=== PATIENT | male | born 1950 | race Caucasian/White ===

== ENCOUNTER → 2020-02-04 11:16 | Outpatient (BNVA) | payer MEDICARE, OTHER, SELFPAY | PROVIDERS: Visit Provider Family Medicine | DX: M25.521 Pain in right elbow (principal); Z13.6 Encounter for screening for cardiovascular disorders | CPT/HCPCS: 80053; 80061; 85025 ==

== ENCOUNTER 2020-02-06 08:43 | Outpatient (CLI) | payer MEDICARE, OTHER, SELFPAY ==
--- NOTE | 2020-02-06 08:57 | XR_ITS ---
WS: [id number] Right elbow, 3 views, 02/06/2020 Clinical Data: right elbow pain Comparison: None. Findings: No fractures or dislocations are seen. The radial head is normal. The soft tissues are unremarkable. XR/XR elbow RT min 3V* [id number] Impression: Negative right elbow.
== END 2020-02-06 08:44 | disposition home or self-care (01) ==
LOC: RADWPI 08:53
PROVIDERS: Family Provider Family Medicine; PCP Family Medicine; Visit Provider Family Medicine
DX: M25.521 Pain in right elbow (principal)
CPT/HCPCS: 73080

== ENCOUNTER → 2021-01-20 08:35 | Outpatient (BNVA) | payer MEDICARE, OTHER, SELFPAY | PROVIDERS: Family Provider Family Medicine; PCP Family Medicine; Visit Provider Family Medicine | DX: M19.011 Primary osteoarthritis, right shoulder (principal); Z13.6 Encounter for screening for cardiovascular disorders; Z12.5 Encounter for screening for malignant neoplasm of prostate; Z79.899 Other long term (current) drug therapy | CPT/HCPCS: 80053; 80061; 85025; G0103 ==

== ENCOUNTER → 2022-01-19 08:31 | Outpatient (BNVA) | payer MEDICARE, OTHER, SELFPAY | PROVIDERS: Family Provider Family Medicine; PCP Family Medicine; Visit Provider Family Medicine | DX: M19.011 Primary osteoarthritis, right shoulder (principal); Z13.6 Encounter for screening for cardiovascular disorders; Z12.5 Encounter for screening for malignant neoplasm of prostate; Z79.899 Other long term (current) drug therapy | CPT/HCPCS: 80053; 80061; 85025; G0103 ==

== ENCOUNTER → 2023-01-27 08:27 | Outpatient (BNVA) | payer MEDICARE, OTHER, SELFPAY | PROVIDERS: Family Provider Family Medicine; PCP Family Medicine; Visit Provider Family Medicine | DX: Z13.6 Encounter for screening for cardiovascular disorders (principal); Z12.5 Encounter for screening for malignant neoplasm of prostate; M19.011 Primary osteoarthritis, right shoulder | CPT/HCPCS: 80053; 80061; 84153; 85025; G0103 ==

== ENCOUNTER → 2023-09-15 08:26 | Outpatient (BNVA) | payer MEDICARE, OTHER, SELFPAY | PROVIDERS: Family Provider Family Medicine; PCP Family Medicine; Visit Provider Family Medicine | DX: Z98.890 Other specified postprocedural states (principal); Z87.19 Personal history of other diseases of the digestive system | CPT/HCPCS: 80053; 85025 ==

== ENCOUNTER 2023-09-27 06:52 | Outpatient (CLI) | payer OTHER, SELFPAY ==
--- NOTE | 2023-09-27 07:15 | US_ITS ---
WS: [id number] Limited abdomen ultrasound. HISTORY: LEFT inguinal hernia repair. Now with pain and pressure. Ultrasound is directed to the LEFT inguinal canal in the area of concern. There is a hypoechoic area in the LEFT inguinal canal which persist on this examination. This hypoech oic area measures 1.1 x 0.5 x 2.0 cm. This does not peristalsis. This may be postsurgical changes or small recurrent hernia containing omental fat. At this time there is no herniation of GI tract. There is no increased vascularity. IMPRESSION: Mild change in the soft tissue in the LEFT inguinal region. This may be a postoperative scarring with gliosis or very small omental fat hernia. There is no GI tract in the LEFT inguinal region.
== END 2023-09-27 06:53 | disposition home or self-care (01) ==
LOC: RAD 06:52
PROVIDERS: Family Provider Family Medicine; PCP Family Medicine; Visit Provider Family Medicine
DX: Z98.890 Other specified postprocedural states (principal); Z87.19 Personal history of other diseases of the digestive system; R10.9 Unspecified abdominal pain
CPT/HCPCS: 76705